=== PATIENT | male | born 1955 | race Caucasian/White ===

== ENCOUNTER 2023-07-12 06:24 | Day surgery (SDC) | payer MEDICARE ==
[2023-07-12] MEDS ORDERED: Lactated Ringers 1,000 ML IV SCH (07:00)
[2023-07-12] MEDS ORDERED: Propofol 200 MG/20 ML SDV ONE ×2 (07:27→08:14)
[2023-07-12] MEDS ORDERED: fentaNYL 100 MCG/2 ML SDV ONE (07:27)
[2023-07-12] MEDS: Lactated Ringers 1,000 ML IV SCH (07:35)
== END 2023-07-12 10:00 | disposition home or self-care (01) ==
LOC: JP.SDS 06:24
PROVIDERS: ATTEND Student in an Organized Health Care Education/Training Program
DX: D12.8 Benign neoplasm of rectum (principal); K57.30 Diverticulosis of large intestine without perforation or abscess without bleeding; K63.5 Polyp of colon; I10 Essential (primary) hypertension; K21.9 Gastro-esophageal reflux disease without esophagitis
CPT/HCPCS: 93005; J2704; J3010; J7120

== ENCOUNTER 2025-04-10 06:23 | Day surgery (SDC) | payer MEDICARE ==
[2025-04-10 07:00] LABS: PLATELET COUNT,PLT 244.0 K/uL (130-375); RED BLOOD CELL COUNT 4.56 M/uL (4.14-5.76); WHITE BLOOD CELL COUNT,WBC 9.1 K/uL (3.2-11.0)
[2025-04-10] MEDS: Lactated Ringers 1,000 ML IV SCH (07:12)
[2025-04-10 07:14] LABS: BLOOD UREA NITROGEN,BUN 19.0 mg/dL (7-18); CARBON DIOXIDE,CO2 24.0 mmol/L (21-32); CHLORIDE,CL 102.0 mmol/L (100-108); CREATININE 1.4 mg/dL (0.8-1.3); EST CRCL DRUG DOSING (CG) 53.89 mL/min; ESTIMATED GFR 54.0 mL/min (>60); GLUCOSE RANDOM 114.0 mg/dL (74-106); POTASSIUM,K 3.6 mmol/L (3.6-5.2); SODIUM,NA 136.0 mmol/L (140-148)
[2025-04-10] MEDS ORDERED: Succinylcholine 200 MG/10 ML MDV ONE (07:36)
[2025-04-10] MEDS ORDERED: Ondansetron 4 MG/2 ML SDV ONE (07:36)
[2025-04-10] MEDS ORDERED: Dexamethasone 4 MG/ML SDV ONE (07:36)
[2025-04-10] MEDS ORDERED: Propofol 200 MG/20 ML SDV ONE (07:36)
[2025-04-10] MEDS ORDERED: fentaNYL 250 MCG/5 ML SDV ONE (07:36)
[2025-04-10] MEDS: metroNIDAZOLE/Normal Saline 500 MG in Premix Bag 1 BAG IV ONE (08:15)
[2025-04-10] MEDS ORDERED: fentaNYL 100 MCG/2 ML SDV ONE (09:30)
[2025-04-10] MEDS: Acetaminophen/HYDROcodone 325-5 MG Tab PO PRN (11:02)
== END 2025-04-10 12:15 | disposition home or self-care (01) ==
LOC: JP.SDS 06:23
PROVIDERS: ATTEND Surgery
DX: K40.30 Unilateral inguinal hernia, with obstruction, without gangrene, not specified as recurrent (principal); I10 Essential (primary) hypertension; Z88.8 Allergy status to other drugs, medicaments and biological substances; Z86.16 Personal history of COVID-19; Z79.82 Long term (current) use of aspirin; Z79.899 Other long term (current) drug therapy
CPT/HCPCS: 36415; 49650; 80048; 85027; A9270; C1781; J0169; J0330; J0690; J1100; J2405; J2704; J2795; J3010; J7120; 00840-QZ; J0665; J1836; J3490